=== PATIENT | female | born 1960 | race Caucasian/White ===

== ENCOUNTER 2017-07-03 17:28 | Emergency (ER) | payer OTHER | END 2017-07-03 19:27 | disposition home or self-care (01) | LOC: ERS 17:28 | DX: G89.29 Other chronic pain (principal); M54.5 Low back pain | CPT/HCPCS: 96372 ==

== ENCOUNTER 2017-07-16 20:54 | Emergency (ER) | payer OTHER ==
[2017-07-16] MEDS ORDERED: Ketorolac Tromethamine 30 MG/ML VIAL ONE (22:14)
== END 2017-07-16 22:43 | disposition home or self-care (01) ==
LOC: ERS 20:54
DX: G89.29 Other chronic pain (principal); M25.562 Pain in left knee; E03.9 Hypothyroidism, unspecified; F41.9 Anxiety disorder, unspecified; F17.210 Nicotine dependence, cigarettes, uncomplicated; Z79.899 Other long term (current) drug therapy
CPT/HCPCS: 96372; J1885

== ENCOUNTER 2021-09-18 19:33 | Emergency (ER) | payer OTHER ==
[2021-09-18] MEDS ORDERED: Bupivacaine 0.25% 10 ML VIAL ONE (20:21)
== END 2021-09-18 21:38 | disposition home or self-care (01) ==
LOC: ERS 19:33
DX: L60.0 Ingrowing nail (principal); I10 Essential (primary) hypertension; E03.9 Hypothyroidism, unspecified; F17.210 Nicotine dependence, cigarettes, uncomplicated; Z79.899 Other long term (current) drug therapy
CPT/HCPCS: 11750; S0020

== ENCOUNTER 2021-12-06 19:48 | Emergency (ER) | payer OTHER | END 2021-12-06 23:02 | disposition home or self-care (01) | LOC: ERS 19:48 | DX: M79.604 Pain in right leg (principal); I10 Essential (primary) hypertension; F17.210 Nicotine dependence, cigarettes, uncomplicated; Z79.899 Other long term (current) drug therapy ==

== ENCOUNTER 2023-08-15 20:45 | Emergency (ER) | payer OTHER, SELFPAY ==
[2023-08-15] MEDS ORDERED: Lidocaine 1% PF 5 ML VIAL ONE (21:20)
[2023-08-15] MEDS ORDERED: cefTRIAXone (ROCEPHIN) 1 GM VIAL ONE (21:20)
[2023-08-15] MEDS ORDERED: Dexamethasone 10 MG/ML VIAL ONE (21:20)
[2023-08-15 22:33] LABS: Influenza A by NAA Not Detected (NotDetected); Influenza B by NAA Not Detected (NotDetected); SARS-CoV-2 NAA Rapid Test Not Detected (NotDetected)
== END 2023-08-15 21:55 | disposition home or self-care (01) ==
LOC: ERS 20:45
DX: R05.9 Cough, unspecified (principal); I10 Essential (primary) hypertension; F17.210 Nicotine dependence, cigarettes, uncomplicated
CPT/HCPCS: 71045; 96372; J0696; J1100